=== PATIENT | female | born 1980 | race Caucasian/White ===

== ENCOUNTER 2016-11-05 11:13 | Inpatient (IN) | payer BC ==
[~2016-11-05] VITALS: Ht 157.5 cm; Wt 78.6 kg
[~2016-11-05 11:13] MED LIST: COLACE 100100 MG/CAP PO; MOTRIN 600600 MG/TAB PO; NUVA RING; PERCOCET 325 MG1 TA2 PO; PRENATAL1 TA1 PO
[2016-12-22] VITALS (18 sets, daily range): BP systolic 109–136; BP diastolic 57–78; PULSE 56–84; TEMP 97.9–98.5
[2016-12-22] MEDS ORDERED: PRENATAL (10:44)
[2016-12-22 11:05] LABS: BASO % 0.3 % (0.0-2.0); EOS # 0.1 (0.0-0.7); EOS % 0.9 % (0-4.0); GRAN # 6.2 (1.4-6.5); GRAN % 70.7 % (42.2-75.2); HEMOGLOBIN 11.9 g/dl (12.5-16.0); LYMPH # 2.1 (1.2-3.4); LYMPH % 23.3 % (20.0-51.0); MEAN CELL VOLUME 97 fl (80.0-100.0); MEAN CORPUSCULAR HEMOGLOBIN 34 pg (27.0-31.0); MEAN CORPUSCULAR HGB CONC 35 g/dl (33.0-37.0); MONO # 0.4 (0.1-0.6); MONO % 4.6 % (1.7-9.3); PLATELET COUNT 180 K/mm3 (130-400); RED BLOOD COUNT 3.52 M/mm3 (4.10-5.30); REDCELL DISTRIBUTION WIDTH-CV 12.8 % (11.5-14.5); WHITE BLOOD COUNT 8.8 K/mm3 (4.8-10.8)
[2016-12-23 01:00] VITALS: BP 116/66; PULSE 63; TEMP 97.6
[2016-12-23 04:30] VITALS: BP 127/73; PULSE 76; TEMP 98.2
[2016-12-23 08:15] VITALS: BP 120/72; PULSE 65; TEMP 98.1
[2016-12-23 09:09] LABS: HEMATOCRIT 33.4 % (37.0-47.0); HEMOGLOBIN 11.4 g/dl (12.5-16.0)
[2016-12-23 15:28] VITALS: BP 114/68; PULSE 67; TEMP 98.4
[2016-12-23 22:35] VITALS: BP 117/62; PULSE 69; TEMP 98.2
[2016-12-24 08:00] VITALS: BP 131/72; PULSE 72; TEMP 99
[2016-12-24] MEDS ORDERED: PERCOCET 325 MG1 TA2 PO (09:16)
[2016-12-24] MEDS ORDERED: IBU600 MG PO (09:16)
[2016-12-24] MEDS ORDERED: SENOKOT S 50 MG1 TAB PO (09:17)
[2016-12-24 20:00] VITALS: BP 129/67; PULSE 62; TEMP 97.7
[2016-12-25 02:25] VITALS: BP 121/78; PULSE 90; TEMP 98
[2016-12-25 07:30] VITALS: BP 145/78; PULSE 62; TEMP 98.2
== END 2016-12-25 12:10 | disposition home or self-care (01) | DRG 766 ==
LOC: LDRO 11:13 → EDSTATUS 12-21 08:43 → LDRO 12-21 16:57 → OB 12-22 08:45
PROVIDERS: Obstetrics & Gynecology
PROC: 10D00Z1 Extraction of Products of Conception, Low, Open Approach (ICD-10-PCS; principal; 2016-12-22)
DX: O34.211 Maternal care for low transverse scar from previous cesarean delivery (principal); N85.8 Other specified noninflammatory disorders of uterus; Z3A.39 39 weeks gestation of pregnancy; Z37.0 Single live birth
CPT/HCPCS: J0690; J1885; J2175; J2270; J2370; J2405; J2590; J7120

== ENCOUNTER → 2022-05-04 | Outpatient (CLI) | payer BC ==
[~2022-05-04] MED LIST changes: +IBU600 MG PO; +PRENATAL; +SENOKOT S 50 MG1 TAB PO
== END ==
LOC: MC.RAD 14:00
DX: Z12.31 Encounter for screening mammogram for malignant neoplasm of breast (principal); N63.13 Unspecified lump in the right breast, lower outer quadrant

== ENCOUNTER → 2022-05-18 | Outpatient (CLI) | payer BC | LOC: MC.RAD 14:00 | DX: N63.10 Unspecified lump in the right breast, unspecified quadrant (principal) ==

== ENCOUNTER → 2022-11-18 | Outpatient (CLI) | payer BC | LOC: MC.RAD 13:54 | DX: N63.10 Unspecified lump in the right breast, unspecified quadrant (principal) ==

== ENCOUNTER → 2023-09-08 | Outpatient (CLI) | payer BC | LOC: MC.RAD 13:53 | DX: R92.8 Other abnormal and inconclusive findings on diagnostic imaging of breast (principal) ==